=== PATIENT | male | born 1975 | race Caucasian/White ===

== ENCOUNTER 2016-11-13 13:12 | Inpatient (IN) | payer OTHER ==
[~2016-11-13] VITALS: Ht 182.9 cm; Wt 75.3 kg
[~2016-11-13 13:12] MED LIST: BENTYL20 MG PO; CATAPRES0.1 MG PO; LOMOTIL TABLET1 EACH PO; NAPROSYN500 MG PO; PRILOSEC OTC20 MG PO; TRAZODONE HCL50 MG PO; ULTRAM50 MG PO
[2016-11-13 14:22] LABS: MCH 32.3 PG (29.0-34.0); MCV 97.7 FL (86-99); RBC DIS.WIDTH-CV 12.6 % (11.8-14.6); RBC DIS.WIDTH-SD 45.2 % (39-53); WHITE BLOOD COUNT 7.4 K/uL (4.1-10.2)
[2016-11-13 14:31] LABS: CHLORIDE 105 mEq/L (99-109); POTASSIUM 4.5 mEq/L (3.7-5.4); SODIUM 141 mEq/L (136-147)
[2016-11-13 14:32] LABS: GLUCOSE 92 mg/dL (70-99)
[2016-11-13 14:34] LABS: ANION GAP 9 MEQ/L (2-14)
[2016-11-13 14:36] LABS: GFR ESTIMATE (CALCULATED) > 59 mL/min/; SERUM ETHYL ALCOHOL < 10 mg/dL
[2016-11-13 14:37] LABS: UREA NITROGEN (BUN) 9 mg/dL (9-23)
[2016-11-13 15:02] LABS: AMPHETAMINE NEGATIVE (500 ng/mL); BARBITURATES NEGATIVE (200 ng/mL); BENZODIAZEPINES NEGATIVE (150 ng/mL); COCAINE NEGATIVE (150 ng/mL); INTERNAL CONTROLS VALID? YES; METHADONE NEGATIVE (200 ng/mL); METHAMPHETAMINE NEGATIVE (500 ng/mL); OPIATES (MORPHINE) NEGATIVE (100 ng/mL); OXYCODONE NEGATIVE (100 ng/mL); PHENCYCLIDINE NEGATIVE (25 ng/mL); PROPOXYPHENE NEGATIVE (300 ng/mL); THC CANNABINOIDS PRESUMPTIVE POSITIVE (50 ng/mL); TRICYCLIC ANTIDEPRESSANTS NEGATIVE (300 ng/mL)
[2016-11-13 15:03] LABS: ADD MEDTOX COMMENT Y
[2016-11-13 15:18] LABS: MEAN PLAT.VOLUME 11.4 uM^3 (9.0-12.4); PLAT.SUFFICIENCY ADEQUATE; PLATELET COUNT 188 K/uL (156-360)
[2016-11-13 17:21] VITALS: BP 119/75
[2016-11-13 17:28] VITALS: BP 119/75
[2016-11-13] MEDS ORDERED: TYLENOL EXTRA500 MG PO (18:18)
[2016-11-14 07:48] VITALS: BP 111/56
[2016-11-14 15:10] VITALS: BP 127/72
[2016-11-15 07:44] VITALS: BP 114/55
[2016-11-15 15:09] VITALS: BP 128/73
[2016-11-16 07:22] VITALS: BP 120/58
[2016-11-16 15:39] VITALS: BP 152/87
[2016-11-17 07:38] VITALS: BP 110/56
[2016-11-17] MEDS ORDERED: FLUOXETINE HCL20 MG PO (09:08)
[2016-11-17] MEDS ORDERED: TRAZODONE HCL100 MG PO (09:08)
== END 2016-11-17 10:49 | disposition home or self-care (01) | DRG 885 ==
LOC: EME 13:12 → EDOF 17:09 → 1WEST 17:09
DX: F33.9 Major depressive disorder, recurrent, unspecified (principal); F40.10 Social phobia, unspecified; R45.851 Suicidal ideations; R45.850 Homicidal ideations; Z56.0 Unemployment, unspecified; F12.90 Cannabis use, unspecified, uncomplicated
CPT/HCPCS: 80048; 84999; 85027; 90839; 97165 GO; 99281; 99285; G0480